=== PATIENT | male | born 1950 | race Caucasian/White ===

== ENCOUNTER → 2017-11-13 | Emergency (ER) | payer OTHER ==
[~2017-11-13] VITALS: Ht 167.6 cm; Wt 65.8 kg
== END | disposition left against medical advice (07) ==
LOC: ER 18:25
DX: L02.211 Cutaneous abscess of abdominal wall (principal); T85.79XS Infection and inflammatory reaction due to other internal prosthetic devices, implants and grafts, sequela; Y73.8 Miscellaneous gastroenterology and urology devices associated with adverse incidents, not elsewhere classified

== ENCOUNTER 2017-11-17 12:13 | Inpatient (IN) | payer OTHER ==
[~2017-11-17] VITALS: Ht 165.1 cm; Wt 52.2 kg
== END 2017-11-26 14:59 | disposition home or self-care (01) | DRG 394 ==
LOC: ER 12:13 → SURH 16:47 → SEC-K 16:47 → SURH 11-18 08:32
PROC: BW21Y0Z Computerized Tomography (CT Scan) of Abdomen and Pelvis using Other Contrast, Unenhanced and Enhanced (ICD-10-PCS; 2017-11-17)
PROC: 30233N1 Transfusion of Nonautologous Red Blood Cells into Peripheral Vein, Percutaneous Approach (ICD-10-PCS; 2017-11-19)
PROC: 0DJD8ZZ Inspection of Lower Intestinal Tract, Via Natural or Artificial Opening Endoscopic (ICD-10-PCS; principal; 2017-11-24)
PROC: 3E0336Z Introduction of Nutritional Substance into Peripheral Vein, Percutaneous Approach (ICD-10-PCS; 2017-11-24)
PROC: B246ZZZ Ultrasonography of Right and Left Heart (ICD-10-PCS; 2017-11-24)
DX: K61.1 Rectal abscess (principal); T81.4XXA Infection following a procedure, initial encounter; E87.1 Hypo-osmolality and hyponatremia; B37.49 Other urogenital candidiasis; Y83.8 Other surgical procedures as the cause of abnormal reaction of the patient, or of later complication, without mention of misadventure at the time of the procedure; Y92.098 Other place in other non-institutional residence as the place of occurrence of the external cause; E86.0 Dehydration; Z85.048 Personal history of other malignant neoplasm of rectum, rectosigmoid junction, and anus; D64.89 Other specified anemias; I35.0 Nonrheumatic aortic (valve) stenosis